=== PATIENT | female | born 1945 | race Hispanic/Latino ===

== ENCOUNTER 2016-05-29 13:34 | Outpatient (CLI) | payer MEDICARE ==
[~2016-05-29 13:34] MED LIST: NACL ONE
== END 2016-05-29 13:35 | disposition home or self-care (01) ==
LOC: WOUND 13:34
PROVIDERS: ATTEND Internal Medicine
DX: E11.622 Type 2 diabetes mellitus with other skin ulcer (principal); L97.101 Non-pressure chronic ulcer of unspecified thigh limited to breakdown of skin; K21.0 Gastro-esophageal reflux disease with esophagitis; E66.01 Morbid (severe) obesity due to excess calories; E03.8 Other specified hypothyroidism; R05 Cough; M79.7 Fibromyalgia; J45.909 Unspecified asthma, uncomplicated; E03.9 Hypothyroidism, unspecified; Z87.891 Personal history of nicotine dependence
CPT/HCPCS: 99213; G0463

== ENCOUNTER 2016-08-26 07:56 | Outpatient (CLI) | payer MEDICARE ==
[2016-08-26] MEDS ORDERED: XYLOCAINE TOPICAL 4% TP ONE ×2 (08:25→09:30)
== END 2016-08-26 07:57 | disposition home or self-care (01) ==
LOC: WOUND 07:56
PROVIDERS: ATTEND Internal Medicine
DX: E11.622 Type 2 diabetes mellitus with other skin ulcer (principal); L98.491 Non-pressure chronic ulcer of skin of other sites limited to breakdown of skin; J45.20 Mild intermittent asthma, uncomplicated; M79.7 Fibromyalgia; E66.01 Morbid (severe) obesity due to excess calories; B35.4 Tinea corporis; K21.9 Gastro-esophageal reflux disease without esophagitis; E03.9 Hypothyroidism, unspecified; Z68.41 Body mass index [BMI] 40.0-44.9, adult; Z87.891 Personal history of nicotine dependence